=== PATIENT | male | born 1950 | race Caucasian/White ===

== ENCOUNTER → 2017-03-17 | Outpatient (CLI) | payer MEDICARE, OTHER ==
[2015-11-26 11:45] VITALS: BP 122/80
[~2017-03-17] MED LIST: ADALAT CC60 M1 PO; HYDROCHLOROTH12.5 M2 PO; LOPRESSOR100 M1 PO; MEDI-FIRST ASP325 MG PO; POTASSIUM CHLO20 ME3 PO
== END ==
LOC: RAD 14:06
DX: L03.011 Cellulitis of right finger (principal)

== ENCOUNTER 2017-08-25 11:11 | Emergency (ER) | payer MEDICARE, OTHER ==
[~2017-08-25] VITALS: Ht 182.9 cm; Wt 115.9 kg
[2017-08-25 12:11] LABS: ALBUMIN 3.8 g/dL (3.5-5.0); BUN/CREATININE RATIO 12.8 (6.0-26.0); CALCIUM 9.3 mg/dL (8.4-10.2); TOTAL BILIRUBIN 1.3 mg/dL (0.2-1.3); TOTAL PROTEIN 7.3 g/dL (6.3-8.2)
[2017-08-25 12:16] LABS: POTASSIUM 2.7 mmol/L (3.6-5.0)
[2017-08-25 12:32] LABS: HEMOGLOBIN 15.7 g/dL (13.5-18.0); LYMPHOCYTE 22 % (20-51); MEAN CELL VOLUME 95 fl (78-100); MEAN CORPUSCULAR HEMOGLOBIN 34 pg (27-31); MEAN CORPUSCULAR HGB CONC 36 g/dL (33-37); MEAN PLATELET VOLUME 10.6 fl (7.4-10.4); MONOCYTE 5 % (3-10); NEUTROPHILS 65 % (42-75); PLATELET COUNT 192 K/mm3 (130-400); RED BLOOD COUNT 4.65 M/mm3 (4.20-5.60); RED CELL DISTRIBUTION WIDTH 12.5 % (11.5-14.5); WHITE BLOOD COUNT 10.2 K/mm3 (4.8-10.8)
[2017-08-25 13:01] LABS: D-DIMER 0.75 mg/L FEU (0.15-0.50)
[2017-08-25 14:10] VITALS: BP 126/91
== END 2017-08-25 14:00 | disposition home or self-care (01) ==
LOC: ED 11:11
PROVIDERS: Physician Assistant
DX: E87.6 Hypokalemia (principal); M79.652 Pain in left thigh; M79.662 Pain in left lower leg; I48.91 Unspecified atrial fibrillation; Z79.82 Long term (current) use of aspirin; I10 Essential (primary) hypertension; Z88.0 Allergy status to penicillin

== ENCOUNTER → 2017-08-31 | Outpatient (CLI) | payer MEDICARE, OTHER ==
[2017-08-25 14:10] VITALS: BP 126/91
[2017-08-31 10:52] LABS: BUN/CREATININE RATIO 12.8 (6.0-26.0); CALCIUM 9.1 mg/dL (8.4-10.2)
[2017-08-31 11:01] LABS: POTASSIUM 2.9 mmol/L (3.6-5.0)
== END ==
LOC: LAB 10:27
PROVIDERS: Nurse Practitioner Family
DX: Z86.39 Personal history of other endocrine, nutritional and metabolic disease (principal)

== ENCOUNTER → 2017-09-12 | Outpatient (CLI) | payer MEDICARE, OTHER ==
[2017-08-25 14:10] VITALS: BP 126/91
[2017-09-12 11:01] LABS: BUN/CREATININE RATIO 14.4 (6.0-26.0); CALCIUM 9.6 mg/dL (8.4-10.2)
[2017-09-12 11:26] LABS: POTASSIUM 2.9 mmol/L (3.6-5.0)
== END ==
LOC: LAB 10:38
PROVIDERS: Internal Medicine
DX: Z86.39 Personal history of other endocrine, nutritional and metabolic disease (principal)

== ENCOUNTER → 2017-09-21 | Outpatient (CLI) | payer MEDICARE, OTHER ==
[2017-08-25 14:10] VITALS: BP 126/91
[2017-09-21 10:25] LABS: BUN/CREATININE RATIO 13.1 (6.0-26.0); CALCIUM 9.1 mg/dL (8.4-10.2); POTASSIUM 3.6 mmol/L (3.6-5.0)
== END ==
LOC: LAB 09:57
PROVIDERS: Nurse Practitioner Family
DX: E83.42 Hypomagnesemia (principal); E87.6 Hypokalemia; I10 Essential (primary) hypertension; E66.9 Obesity, unspecified

== ENCOUNTER → 2017-10-10 | Outpatient (CLI) | payer MEDICARE, OTHER ==
[2017-10-10 14:44] LABS: BUN/CREATININE RATIO 13.5 (6.0-26.0); CALCIUM 9.2 mg/dL (8.4-10.2); POTASSIUM 3.7 mmol/L (3.6-5.0)
== END ==
LOC: LAB 14:04
PROVIDERS: Nurse Practitioner Family
DX: E87.6 Hypokalemia (principal); E83.42 Hypomagnesemia; I10 Essential (primary) hypertension; E66.9 Obesity, unspecified

== ENCOUNTER → 2017-11-30 | Outpatient (CLI) | payer MEDICARE, OTHER ==
[~2017-11-30] VITALS: Ht 182.9 cm; Wt 115.9 kg
[~2017-11-30] MED LIST changes: +ALDACTONE25 M1 PO; +ASPIRIN E.C. 8181 MG PO; +METOPROLOL SUC100 M1 PO; +NIFEDIPINE PO; +SLOW-MAG 106 MG1 ECT PO
[2017-11-30 12:00] VITALS: BP 110/75
[2017-11-30 12:41] LABS: BASO # 0.1 (0.02-0.10); EOS # 0.3 (0.04-0.40); EOS % 3.5 % (0.0-4.0); HEMOGLOBIN 15.8 g/dL (13.5-18.0); LYMPH# 1.8 (1.50-4.00); MEAN CELL VOLUME 95 fl (78-100); MEAN CORPUSCULAR HEMOGLOBIN 34 pg (27-31); MEAN CORPUSCULAR HGB CONC 35 g/dL (33-37); MEAN PLATELET VOLUME 10.7 fl (7.4-10.4); NEU # 5.9 (1.40-6.50); PLATELET COUNT 215 K/mm3 (130-400); RED BLOOD COUNT 4.72 M/mm3 (4.20-5.60); RED CELL DISTRIBUTION WIDTH 12.7 % (11.5-14.5); WHITE BLOOD COUNT 9.1 K/mm3 (4.8-10.8)
[2017-11-30 12:47] LABS: ALBUMIN 4.1 g/dL (3.5-5.0); BUN/CREATININE RATIO 14.3 (6.0-26.0); POTASSIUM 3.5 mmol/L (3.6-5.0); TOTAL BILIRUBIN 0.9 mg/dL (0.2-1.3); TOTAL PROTEIN 8.6 g/dL (6.3-8.2)
[2017-11-30 14:23] LABS: ERYTHROCYTE SEDIMENTATION RATE 0 mm/hr (0-20)
[2017-12-01 00:29] LABS: TESTOSTERONE 237 ng/dL (221-716)
== END ==
LOC: AMSURD 11:53
PROVIDERS: Internal Medicine
DX: I10 Essential (primary) hypertension (principal); Z12.5 Encounter for screening for malignant neoplasm of prostate; I48.0 Paroxysmal atrial fibrillation; E78.2 Mixed hyperlipidemia; N52.9 Male erectile dysfunction, unspecified; Z12.11 Encounter for screening for malignant neoplasm of colon; R20.2 Paresthesia of skin

== ENCOUNTER → 2018-11-27 | Outpatient (CLI) | payer MEDICARE, OTHER ==
[~2018-11-27] VITALS: Ht 182.9 cm; Wt 115.9 kg
[2018-11-27 11:52] LABS: HEMATOCRIT 44.5 % (42.0-52.0); HEMOGLOBIN 15.3 g/dL (13.5-18.0); MEAN CELL VOLUME 93 fl (78-100); MEAN CORPUSCULAR HEMOGLOBIN 32 pg (27-31); MEAN CORPUSCULAR HGB CONC 34 g/dL (33-37); MEAN PLATELET VOLUME 10.7 fl (7.4-10.4); PLATELET COUNT 259 K/mm3 (130-400); RED BLOOD COUNT 4.77 M/mm3 (4.20-5.60); RED CELL DISTRIBUTION WIDTH 12.1 % (11.5-14.5); WHITE BLOOD COUNT 8.8 K/mm3 (4.8-10.8)
[2018-11-27 12:24] LABS: ALBUMIN 4.2 g/dL (3.5-5.0); CALCIUM 9.6 mg/dL (8.4-10.2); TOTAL BILIRUBIN 1.2 mg/dL (0.2-1.3); TOTAL PROTEIN 8.3 g/dL (6.3-8.2)
[2018-11-27 12:30] VITALS: BP 94/62
[2018-11-27 12:41] LABS: POTASSIUM 2.7 mmol/L (3.6-5.0)
[2018-11-27 12:56] LABS: LYMPHOCYTE 29 % (20-51); MONOCYTE 9 % (3-10); NEUTROPHILS 56 % (42-75)
[2018-11-27 13:13] LABS: ERYTHROCYTE SEDIMENTATION RATE 28 mm/hr (0-20)
[2018-11-27 18:00] VITALS: BP 105/81
[2018-11-27 18:10] VITALS: BP 105/81
[2018-11-27 23:42] VITALS: BP 127/82
[2018-11-28 00:02] LABS: TESTOSTERONE 136 ng/dL (221-716)
== END ==
LOC: AMSURD 11:08 → LAB 11:08
PROVIDERS: Internal Medicine
DX: I10 Essential (primary) hypertension (principal); G93.41 Metabolic encephalopathy; I48.91 Unspecified atrial fibrillation; N52.9 Male erectile dysfunction, unspecified; R20.2 Paresthesia of skin; E87.6 Hypokalemia; E86.0 Dehydration; I95.9 Hypotension, unspecified
CPT/HCPCS: J3475; J3480; J7040

== ENCOUNTER → 2018-11-29 | Outpatient (CLI) | payer MEDICARE, OTHER ==
[2018-11-27 23:42] VITALS: BP 127/82
== END ==
LOC: RAD 15:29
DX: I34.0 Nonrheumatic mitral (valve) insufficiency (principal); I48.91 Unspecified atrial fibrillation

== ENCOUNTER → 2018-12-04 | Outpatient (CLI) | payer MEDICARE, OTHER ==
[2018-11-27 23:42] VITALS: BP 127/82
[2018-12-04 12:55] LABS: ALBUMIN 4.1 g/dL (3.5-5.0); CALCIUM 9.3 mg/dL (8.4-10.2); POTASSIUM 3.1 mmol/L (3.6-5.0); TOTAL BILIRUBIN 0.9 mg/dL (0.2-1.3); TOTAL PROTEIN 7.9 g/dL (6.3-8.2)
[2018-12-05 02:01] LABS: FOLLICLE STIMULATING HORMONE 1.9 mIU/mL (1.0-12.0); LUTENIZING HORMONE 2.4 mIU/mL (0.6-12.1); PROLACTIN 34.9 ng/mL (3.5-19.4)
== END ==
LOC: LAB 12:29
PROVIDERS: Internal Medicine
DX: E29.1 Testicular hypofunction (principal); I48.91 Unspecified atrial fibrillation; I10 Essential (primary) hypertension

== ENCOUNTER → 2018-12-05 | Outpatient (CLI) | payer MEDICARE, OTHER ==
[2018-11-27 23:42] VITALS: BP 127/82
== END ==
LOC: RAD 08:17
DX: R22.0 Localized swelling, mass and lump, head (principal); R27.0 Ataxia, unspecified; I48.91 Unspecified atrial fibrillation; I10 Essential (primary) hypertension
CPT/HCPCS: A9585